=== PATIENT | male | born 1950 | race Caucasian/White ===

== ENCOUNTER → 2020-10-02 | Outpatient (CLI) | payer OTHER ==
[~2020-10-02] MED LIST: ASPIR 8181 MG; BACTRIM DS TAB1 EACH PO; CHLORTABS4 MG; NORCO 5-325 TA1 EACH PO; OMEPRAZOLE40 MG
== END ==
LOC: SJCVCIMAG 07:22
PROVIDERS: ATTEND Internal Medicine
DX: I08.1 Rheumatic disorders of both mitral and tricuspid valves (principal); I48.91 Unspecified atrial fibrillation; R53.83 Other fatigue; Z87.891 Personal history of nicotine dependence

== ENCOUNTER 2020-11-11 09:20 | Observation (INO) | payer OTHER ==
[~2020-11-11] VITALS: Ht 177.8 cm; Wt 88.5 kg
[2020-11-11] VITALS (7 sets, daily range): BP systolic 112–129; BP diastolic 74–87
--- NOTE | ~2020-11-11 | P ---
[facility] [place] [address] PROCEDURE REPORT Name: SILVERIO HERNANDEZ Carolyne Room #: 201-P [place] Carley Cabrera#: [id number] Admission: 11/11/20 Attend Phys: Vipul Rose Discharge: Date of : 54 Report #: [id number] THIS REPORT FOR: cc: Darryn Lacy Gregg R. DO Lammoglia,Vipul Marte MD ~ DATE OF SERVICE: 11/12/2020 PROCEDURES: 1. Electrical cardioversion. 2. Supervision of conscious sedation. HEALTH UNIT COORDINATOR: Dr. Vipul Rose. INDICATIONS: A 70-year-old male patient with symptomatic paroxysmal atrial fibrillation. BRIEF DESCRIPTION OF PROCEDURE: The patient was brought to the cardiac catheterization prep and hold in stable condition ____ conscious sedation. AP shock at 200 joules biphasic mode was performed. This converted to sinus cortes with occasional PVCs and converted subsequently to sinus bradycardia. He was reversed with 0.4 Romazicon. There were no complications. The patient tolerated the procedure well. By: [id number] Vipul Rose MD /nt
--- NOTE | ~2020-11-11 | D ---
[facility] [place] [address] DISCHARGE SUMMARY Name: SILVERIO HERNANDEZ Room #: 201-P [facility] Rick#: [id number] Admission: 11/11/20 Attend Phys: Vipul Rose Discharge: Date of : 54 Report #: [id number] THIS REPORT FOR: cc: Darryn Lacy Gregg R. DO Lammoglia,Vipul Marte MD ~ DATE OF SERVICE: 11/12/2020 ADMITTING DIAGNOSIS: Paroxysmal symptomatic atrial fibrillation. DISCHARGE DIAGNOSES: 1. Paroxysmal symptomatic atrial fibrillation. 2. Coronary artery disease. DISCHARGE MEDICATIONS: 1. Home meds with the following changes: A. Metoprolol 25 mg daily. B. Amiodarone 200 mg t.i.d. for a week, b.i.d. for a week, q.a.m. subsequently. FOLLOWUP: Dr. Rose in 4 weeks. PROCEDURE PERFORMED: Electrical cardioversion with conscious sedation. BRIEF CLINICAL HISTORY: See history and physical in chart. HOSPITAL COURSE: The patient was admitted to the hospital for cardioversion. Anticoagulation was maintained per guidelines. Amiodarone was given intravenously and subsequently underwent cardioversion based on lack of conversion on IV amiodarone. He underwent synchronized AP shock at 200 joules biphasic mode, which converted him to sinus bradycardia. Post-procedure, he has done very well without any significant limitations to activity. No side effects are described. He has been discharged to home in stable condition and follow up with the previously stated discharge instructions and medications. By: [id number] Vipul Rose MD /nt
[2020-11-11] MEDS ORDERED: GLUCOSAMINE CH1 EA10 PO (10:15)
[2020-11-11] MEDS ORDERED: TOPROL XL25 MG PO (10:16)
[2020-11-11] MEDS ORDERED: CENTRUM MEN'S1 EACH PO (10:16)
[2020-11-11] MEDS ORDERED: FISH OIL 1,0001 EAC9 PO (10:17)
[2020-11-11] MEDS ORDERED: XARELTO20 MG PO (10:18)
[2020-11-11] MEDS ORDERED: VITAMIN D310 MC1 PO (10:19)
[2020-11-11 10:25] LABS: HEMOGLOBIN 14.5 gm/dL (14.0-18.0); MCH 31.1 pg (26.0-34.0); MCHC 33.8 g/dL (28.0-37.0); MCV 91.8 fL (80.0-100.0); RBC 4.68 mil/uL (4.50-6.00); RDW 13.4 % (10.5-14.5); WBC 7.8 thou/uL (4.0-11.0)
[2020-11-11 10:39] LABS: CALCIUM 9.8 mg/dL (8.5-10.1); POTASSIUM 4.3 mmol/L (3.5-5.1)
--- NOTE | 2020-11-11 17:05 | NUR ---
ASSUMED CARE OF PATIENT APPROX. 1400. PATIENT A&OX4, VSS, DENIES PAIN. PATIENT HAS URINATED. PATIENT FLAT FOR 3 HOURS AND GOT UP TO BATHROOM AT 4PM. CATH SITE C/D/I, FLAT AND SOFT. NO SIGNS OF DISTRESS. WILL CONTINUE TO MONITOR.
[2020-11-12 04:07] VITALS: BP 112/75
--- NOTE | 2020-11-12 05:08 | NUR ---
ASSESSMENT: PT REMAIN ALERT AND ORIENT TIMES FOUR. UP AD LISSETH TO BR. AFIB PER MONITOR. NPO FOR POSSIBLE CARIOVERSION THIS AM. VSS, AFEBRILE. DENIES CP, SOB AND N/V. LAST TAKEN XARELTO WAS 11/08/20 AT HOME. PT DID NOT SIGN BLUE FOR FOR OBSERVATION STATUS, STATES THAT IT MESSES UP HIS INSURANCE. RIGHT GROIN C/D/I. SLOW PROGRESS, WILL CONTINUE TO MONITOR.
[2020-11-12 07:58] VITALS: BP 114/82
[2020-11-12 10:20] LABS: HEMATOCRIT 42.6 % (42.0-52.0); HEMOGLOBIN 14.4 gm/dL (14.0-18.0); MCHC 33.7 g/dL (28.0-37.0); MCV 91.9 fL (80.0-100.0); RBC 4.63 mil/uL (4.50-6.00); RDW 13.5 % (10.5-14.5); WBC 7.1 thou/uL (4.0-11.0)
[2020-11-12 10:38] LABS: ANION GAP 9 mmol/L (7-16); BUN 16 mg/dL (7-18); CALCIUM 9.4 mg/dL (8.5-10.1); CHLORIDE 100 mmol/L (98-107); CHOLESTEROL 193 mg/dL (<200); CO2 28 mmol/L (21-32); GLUCOSE 110 mg/dL (74-106); HDL CHOLESTEROL 43 mg/dL (>40); LDL CHOLESTEROL 116 mg/dL (<100); POTASSIUM 4.2 mmol/L (3.5-5.1); SODIUM 137 mmol/L (136-145); TC:HDL 4.5 Ratio (Not establshd); TRIGLYCERIDE 173 mg/dL (<150); VLDL 35 mg/dL (<40)
[2020-11-12 14:30] VITALS: BP 107/72
[2020-11-12 15:30] VITALS: BP 119/83
[2020-11-12] MEDS ORDERED: AMIODARONE HCL400 MG PO (15:32)
[2020-11-12 15:45] VITALS: BP 119/83
== END 2020-11-12 16:38 | disposition home or self-care (01) ==
LOC: CATH 09:20 → 2N 14:25
PROVIDERS: Nurse Practitioner; ADMIT Internal Medicine; ATTEND Internal Medicine
DX: I48.0 Paroxysmal atrial fibrillation (principal); I25.10 Atherosclerotic heart disease of native coronary artery without angina pectoris; R06.00 Dyspnea, unspecified; I42.8 Other cardiomyopathies; E78.5 Hyperlipidemia, unspecified; Z20.828 Contact with and (suspected) exposure to other viral communicable diseases

== ENCOUNTER → 2020-12-15 | Outpatient (CLI) | payer OTHER ==
[~2020-12-15] MED LIST changes: +AMIODARONE HCL400 MG PO; +CENTRUM MEN'S1 EACH PO; +FISH OIL 1,0001 EAC9 PO; +GLUCOSAMINE CH1 EA10 PO; +TOPROL XL25 MG PO; +VITAMIN D310 MC1 PO; +XARELTO20 MG PO
== END ==
LOC: SJCVC 09:26
PROVIDERS: ATTEND Internal Medicine
DX: R00.1 Bradycardia, unspecified (principal); I48.0 Paroxysmal atrial fibrillation; I25.10 Atherosclerotic heart disease of native coronary artery without angina pectoris; K21.9 Gastro-esophageal reflux disease without esophagitis; Z87.891 Personal history of nicotine dependence; Z72.89 Other problems related to lifestyle; Z88.8 Allergy status to other drugs, medicaments and biological substances; Z79.899 Other long term (current) drug therapy; Z82.49 Family history of ischemic heart disease and other diseases of the circulatory system

== ENCOUNTER → 2021-03-17 | Outpatient (CLI) | payer OTHER | LOC: SJCVC 09:51 | PROVIDERS: ATTEND Internal Medicine | DX: I48.0 Paroxysmal atrial fibrillation (principal); E78.5 Hyperlipidemia, unspecified; M19.90 Unspecified osteoarthritis, unspecified site; K21.9 Gastro-esophageal reflux disease without esophagitis; Z98.890 Other specified postprocedural states; Z88.8 Allergy status to other drugs, medicaments and biological substances; Z79.899 Other long term (current) drug therapy; Z87.891 Personal history of nicotine dependence; Z82.49 Family history of ischemic heart disease and other diseases of the circulatory system ==